=== PATIENT | male | born 1985 | race Caucasian/White ===

== ENCOUNTER 2018-07-10 13:22 | Emergency (ER) | payer OTHER ==
[~2018-07-10] VITALS: Ht 177.8 cm; Wt 68.0 kg
[2018-07-10] MEDS ORDERED: CLEOCIN HCL150 MG PO (13:49)
[2018-07-10] MEDS ORDERED: NABUMETONE 750750 M1 PO (13:50)
[2018-07-10] MEDS ORDERED: MEDROLDOSEPACK PO (13:50)
[2018-07-10 14:04] VITALS: BP 109/74
== END 2018-07-10 14:04 | disposition home or self-care (01) ==
LOC: M.ERS 13:22
DX: M75.41 Impingement syndrome of right shoulder (principal); K08.89 Other specified disorders of teeth and supporting structures

== ENCOUNTER 2018-07-14 13:41 | Emergency (ER) | payer OTHER ==
[~2018-07-14] VITALS: Ht 177.8 cm; Wt 68.0 kg
[~2018-07-14 13:41] MED LIST: CLEOCIN HCL150 MG PO; MEDROLDOSEPACK PO; NABUMETONE 750750 M1 PO
[2018-07-14] MEDS ORDERED: CLEOCIN HCL150 MG PO (15:04)
[2018-07-14] MEDS ORDERED: NABUMETONE 750750 M1 PO (15:04)
[2018-07-14] MEDS ORDERED: HYDROCODONE-AP1 EAC6 PO (15:04)
[2018-07-14 15:20] VITALS: BP 130/65
== END 2018-07-14 15:20 | disposition home or self-care (01) ==
LOC: M.ERS 13:41
DX: S61.551A Open bite of right wrist, initial encounter (principal); Z88.0 Allergy status to penicillin; W54.0XXA Bitten by dog, initial encounter; Y93.89 Activity, other specified; Y92.89 Other specified places as the place of occurrence of the external cause; Y99.8 Other external cause status